=== PATIENT | female | born 1955 | race Caucasian/White ===

== ENCOUNTER → 2024-06-04 | Outpatient (CLI) | payer OTHER, SELFPAY ==
[2024-06-04 10:02] LABS: Anion Gap 5 (7-16); BUN/Creatinine Ratio 13 Ratio (12-20); Blood Urea Nitrogen 16 mg/dL (9-23); Calcium 9.4 mg/dL (8.3-10.6); Carbon Dioxide 28.9 mMol/L (20.0-31.0); Cardiac Risk Estimate 3.7 RATIO (3.7-5.6); Chloride 107 mMol/L (98-107); Cholesterol 185 mg/dL (132-200); Creatinine (Component) 1.2 mg/dL (0.6-1.3); Free T4 (Free Thyroxine) 1.38 ng/dL (0.89-1.76); Glucose 83 mg/dL (74-106); HDL Cholesterol 50 mg/dL (40-60); LDL Cholesterol,Calculated 112 mg/dL (0-130); Osmolality,Calculated 281 (275-295); Potassium 4.1 mMol/L (3.4-5.1); Sodium 141 mMol/L (136-145); Thyroid Stimulating Hormone 3.34 uIU/mL (0.55-4.78); Triglycerides 113 mg/dL (30-150); eGFR 49 See Note
== END | disposition home or self-care (01) ==
LOC: COPL 08:12
PROVIDERS: PCP Family Medicine; Referring Provider Registered Nurse; Visit Provider Specialist
DX: E03.9 Hypothyroidism, unspecified (principal); E78.5 Hyperlipidemia, unspecified; R07.9 Chest pain, unspecified
CPT/HCPCS: 36415; 80048; 80061; 84439; 84443

== ENCOUNTER → 2024-06-07 | Outpatient (BNVA) | payer OTHER, SELFPAY | END | disposition home or self-care (01) | PROVIDERS: PCP Registered Nurse; Referring Provider Registered Nurse; Visit Provider Urology | DX: N39.0 Urinary tract infection, site not specified (principal); N18.2 Chronic kidney disease, stage 2 (mild); F17.210 Nicotine dependence, cigarettes, uncomplicated | CPT/HCPCS: 81003; 99212; G0463 ==

== ENCOUNTER → 2024-07-06 | Outpatient (CLI) | payer OTHER, SELFPAY ==
--- NOTE | 2024-07-06 12:20 | XR_ITS ---
Examination: Bone densitometry Date and time of exam:July 06, 2024 1224 hrs. Indications: Menopause age 44 smoking history levothyroxine 9 years Technique: Lumbar spine and hip total bone mineralization values of an calculated. Peak reference and age match control results have been displayed. Findings: Lumbar spine total bone mineralization is0.918 gm/cm2. This is 1.2 standard deviations below peak reference. This is 1.0 standard deviations above age-matched controls. Hip total bone mineralization is 0.773 gm/cm2 This is 1.6 standard deviations below peak reference. This is 0.1 standard deviations above age-matched controls Impression: There is osteopenia based on lumbar spine measurements. There is osteoporosis based on hip measurements
== END | disposition home or self-care (01) ==
LOC: CDIM 11:58
PROVIDERS: Referring Provider Registered Nurse; Visit Provider Registered Nurse
DX: M85.88 Other specified disorders of bone density and structure, other site (principal); M81.0 Age-related osteoporosis without current pathological fracture
CPT/HCPCS: 77080

== ENCOUNTER → 2024-07-11 | Outpatient (CLI) | payer OTHER, SELFPAY ==
[2024-07-11 11:36] LABS: Basophils # (Auto) 0.1 Thou/mm3 (0.0-0.2); Basophils % (Auto) 1 % (0-2.5); Eosinophils # (Auto) 0.2 Thou/mm3 (0.0-0.5); Eosinophils % (Auto) 3 % (0-10); Hematocrit 43.4 % (36.0-46.0); Hemoglobin 14.4 g/dL (12.0-16.0); Immature Granulocytes % (Auto) 0 % (0-0); Immature Granulocytes Auto 0.02 Thou/mm3 (0.00-0.00); Lymphocytes # (Auto) 1.5 Thou/mm3 (1.0-4.8); Lymphocytes % (Auto) 22 % (10-50); Mean Corpuscular HGB Conc 33.2 g/dl (31.0-37.0); Mean Corpuscular Volume 96 fL (80-100); Monocytes # (Auto) 0.5 Thou/mm3 (0.0-0.8); Monocytes % (Auto) 7 % (0-12); Neutrophils # (Auto) 4.7 Thou/mm3 (1.8-7.7); Neutrophils % (Auto) 68 % (37-80); Nucleated Red Blood Cell % 0 /100 WBC (0); Platelet Count 212 Thou/mm3 (140-440); RDW Standard Deviation 46.4 fL (36.4-46.3)
[2024-07-11 11:57] LABS: Parathyroid Hormone Intact 70.1 pg/ml (18.5-88.0)
[2024-07-11 12:08] LABS: Albumin, Serum 4.2 gm/dL (3.4-4.8); Anion Gap 7 (7-16); BUN/Creatinine Ratio 12 Ratio (12-20); Blood Urea Nitrogen 13 mg/dL (9-23); Calcium 8.6 mg/dL (8.3-10.6); Calcium (Corrected) 8.6 mg/dL (8.5-10.1); Carbon Dioxide 25.8 mMol/L (20.0-31.0); Chloride 112 mMol/L (98-107); Creatinine (Component) 1.1 mg/dL (0.6-1.3); Glucose 71 mg/dL (74-106); Osmolality,Calculated 286 (275-295); Phosphorous 3.3 mg/dL (2.4-5.1); Sodium 145 mMol/L (136-145); eGFR 54 See Note
== END | disposition home or self-care (01) ==
LOC: COPL 10:15
PROVIDERS: PCP Registered Nurse; Referring Provider Internal Medicine; Visit Provider Internal Medicine
DX: N17.9 Acute kidney failure, unspecified (principal); I10 Essential (primary) hypertension
CPT/HCPCS: 36415; 80069; 81001; 82043; 82570; 83970; 85025

== ENCOUNTER → 2024-07-12 | Outpatient (CLI) | payer OTHER, SELFPAY ==
[2024-07-12 12:31] LABS: Creatinine,Random Urine 56 mg/dL (30-125)
== END | disposition home or self-care (01) ==
LOC: COPL 09:50
PROVIDERS: Referring Provider Family Medicine; Visit Provider Internal Medicine
DX: N17.9 Acute kidney failure, unspecified (principal); I10 Essential (primary) hypertension
CPT/HCPCS: 82570

== ENCOUNTER → 2024-07-24 | Outpatient (CLI) | payer OTHER, SELFPAY ==
--- NOTE | 2024-07-24 11:45 | XR_ITS ---
Examination: Retroperitoneal ultrasound, complete Technique: Multiple high resolution grayscale images of the retroperitoneum obtained, including kidneys and bladder. Exam date and time:July 24, 2024 1152 hours INDICATIONS: Recurrent urinary tract infections several years with renal insufficiency on laboratory examination. July 11, 2024 FINDINGS: Right kidney 9.5 cm cortex 1.5 cm Left kidney 9.0 cm cortex 1.1 cm Mild left hydronephrosis Mild bilateral renal parenchymal scar formation No bladder mass, bladder prevoid volume 498 cc IMPRESSION: Bilateral renal cortical thinning, small kidneys bilaterally Mild left hydronephrosis
== END | disposition home or self-care (01) ==
PROVIDERS: PCP Registered Nurse; Referring Provider Internal Medicine; Visit Provider Internal Medicine
DX: N28.89 Other specified disorders of kidney and ureter (principal); N13.30 Unspecified hydronephrosis
CPT/HCPCS: 76770

== ENCOUNTER → 2024-10-02 | Outpatient (CLI) | payer OTHER, SELFPAY ==
[2024-10-02 09:26] LABS: Collection Type, Urine Clean Catch
[2024-10-02 10:06] LABS: Albumin, Serum 4.4 gm/dL (3.4-4.8); Anion Gap 7 (7-16); BUN/Creatinine Ratio 11 Ratio (12-20); Blood Urea Nitrogen 13 mg/dL (9-23); Calcium 8.7 mg/dL (8.3-10.6); Calcium (Corrected) 8.7 mg/dL (8.5-10.1); Carbon Dioxide 27.6 mMol/L (20.0-31.0); Chloride 108 mMol/L (98-107); Creatinine (Component) 1.2 mg/dL (0.6-1.3); Glucose 88 mg/dL (74-106); Osmolality,Calculated 284 (275-295); Phosphorous 3.2 mg/dL (2.4-5.1); Potassium 4.2 mMol/L (3.4-5.1); Sodium 143 mMol/L (136-145); eGFR 49 See Note
[2024-10-02 11:46] LABS: Bilirubin,Urine Negative (Negative); Blood,Urine 1+ (Negative); Clarity,Urine Clear (Clear/Hazy); Color,Urine Lt-Yellow (Lt Yel-Yel); Glucose, Urine Negative (Negative); Ketones,Urine Negative (Negative); Leukocyte Esterase,Urine Negative (Negative); Nitrite,Urine Negative (Negative); PH,Urine 6.0 (5.0-7.0); Protein,Urine Negative (Neg - Trace); RBC,Urine 2 /hpf (0-3); Specific Gravity,Urine 1.007 (1.001-1.035); Squamous Epithelial Cell,Urine < 1 /hpf (0-5); Urobilinogen,Urine Negative mg/dL (0.0-1.0); WBC,Urine < 1 /hpf (0-5)
== END | disposition home or self-care (01) ==
LOC: COPL 08:13
PROVIDERS: PCP Internal Medicine; Referring Provider Internal Medicine; Visit Provider Internal Medicine
DX: N17.9 Acute kidney failure, unspecified (principal)
CPT/HCPCS: 36415; 80069; 81001

== ENCOUNTER → 2024-10-17 | Outpatient (CLI) | payer OTHER, SELFPAY ==
--- NOTE | 2024-10-17 10:35 | XR_ITS ---
Examination: PA lateral chest 2 views TECHNIQUE: Upright PA lateral chest 2 views Date and time: October 17, 2024 1042 hours Comparison January 16, 2023 INDICATIONS: Chest pain shortness of breath beginning one month ago. FINDINGS: Normal heart size Mild hyperexpansion. No pneumonia or pulmonary edema Prominent osteopenia IMPRESSION: Mild hyperexpansion No pneumonia or pulmonary edema
--- NOTE | 2024-10-17 10:35 | XR_ITS ---
Examination: Shoulder,right, 3 views Technique: Shoulder AP internal rotation, AP external rotation, Y view shoulder, 3 views Exam date and time :October 17, 2024 1039 hours INDICATIONS: Right shoulder pain beginning several years ago. FINDINGS: Severe osteopenia. Mild to moderate narrowing glenohumeral joint No shoulder fracture or dislocation IMPRESSION: Mild to moderate narrowing glenohumeral joint
[2024-10-17 10:56] LABS: Coccid Serology, CF (UCD)* See Sep Rpt
[2024-10-17 11:38] LABS: Basophils # (Auto) 0.1 Thou/mm3 (0.0-0.2); Basophils % (Auto) 1 % (0-2.5); Eosinophils # (Auto) 0.3 Thou/mm3 (0.0-0.5); Eosinophils % (Auto) 4 % (0-10); Hematocrit 46.2 % (36.0-46.0); Hemoglobin 15.6 g/dL (12.0-16.0); Immature Granulocytes Auto 0.01 Thou/mm3 (0.00-0.00); Lymphocytes # (Auto) 1.9 Thou/mm3 (1.0-4.8); Lymphocytes % (Auto) 31 % (10-50); Mean Corpuscular HGB Conc 33.8 g/dl (31.0-37.0); Mean Corpuscular Hemoglobin 32.4 pg (25.0-35.0); Mean Corpuscular Volume 96 fL (80-100); Monocytes # (Auto) 0.5 Thou/mm3 (0.0-0.8); Monocytes % (Auto) 8 % (0-12); Neutrophils # (Auto) 3.5 Thou/mm3 (1.8-7.7); Neutrophils % (Auto) 56 % (37-80); Nucleated Red Blood Cell # 0.00 Thou/mm3 (0.00-0.00); Nucleated Red Blood Cell % 0 /100 WBC (0); Platelet Count 255 Thou/mm3 (140-440); RDW Standard Deviation 46.6 fL (36.4-46.3); Red Blood Count 4.81 Miln/mm3 (4.00-5.20); White Blood Count 6.3 Thou/mm3 (3.6-11.0)
[2024-10-17 12:04] LABS: Alanine Aminotransferase 10 U/L (10-49); Albumin, Serum 4.7 gm/dL (3.4-4.8); Albumin/Globulin Ratio 1.9 (1.2-2.2); Alkaline Phosphatase 81 U/L (46-116); Anion Gap 9 (7-16); Aspartate Amino Transferase 12 U/L (0-34); BUN/Creatinine Ratio 12 Ratio (12-20); Bilirubin,Total 0.4 mg/dL (0.3-1.2); Blood Urea Nitrogen 14 mg/dL (9-23); Calcium 9.1 mg/dL (8.3-10.6); Calcium (Corrected) 9.1 mg/dL (8.5-10.1); Carbon Dioxide 26.5 mMol/L (20.0-31.0); Chloride 108 mMol/L (98-107); Creatinine (Component) 1.2 mg/dL (0.6-1.3); Globulin 2.5 gm/dL (2.3-3.5); Glucose 94 mg/dL (74-106); Magnesium 1.8 mg/dL (1.6-2.6); Osmolality,Calculated 285 (275-295); Potassium 4.3 mMol/L (3.4-5.1); Sodium 143 mMol/L (136-145); Total Protein 7.2 gm/dL (5.7-8.2); Troponin I < 0.002 ng/mL (0.0-0.045); eGFR 49 See Note
[2024-10-17 12:18] LABS: Vitamin B12 1270 pg/mL (211-911); Vitamin D 25 Hydroxy Total 48.0 ng/mL (7.3-40.2)
== END | disposition home or self-care (01) ==
PROVIDERS: PCP Registered Nurse; Referring Provider Registered Nurse; Visit Provider Radiology Diagnostic Radiology
DX: J98.4 Other disorders of lung (principal); M25.811 Other specified joint disorders, right shoulder; J44.9 Chronic obstructive pulmonary disease, unspecified; R07.9 Chest pain, unspecified; R79.89 Other specified abnormal findings of blood chemistry
CPT/HCPCS: 36415; 71046; 73030; 80053; 82306; 82607; 83735; 84484; 85025; 86171

== ENCOUNTER 2024-11-19 17:59 | Emergency (ER) | payer OTHER, SELFPAY ==
[2024-11-19 18:00] VITALS: BMI 25.6
[2024-11-19 19:16] VITALS: BP 139/75; PULSE 88; RESP 17; TEMP 37.5; O2SAT 91
--- NOTE | 2024-11-19 19:22 | XR_ITS ---
Examination: CT brain head without contrast. 2-D sagittal coronal reconstructions Date and time of exam:November 19, 2024, 1942 hours INDICATIONS: Headache dizziness weakness beginning this morning CTDI: vol (mGy):46.6 DLP: (mGycm):943 Technique: Multiple CT axial sections of the brain have been obtained, 5 mm slice thickness. Contrast has not been administered. 2-D sagittal, coronal reconstructions have been obtained Low dose protocols were performed. One or more of the following dose reduction techniques were used; automated exposure control, adjustment of the mA and/or KV according to patient size, use of iterative reconstruction technique. Findings: No significant ventricular enlargement. Intra-axial or extra-axial hemorrhage density is not seen. No mass effect or midline shift Basal cisterns are not remarkable. Fourth ventricle is midline. Cranial vault intact. Impression: Negative for acute hemorrhage, mass effect or midline shift As clinically warranted, if symptoms persist, consider brain MRI follow-up, stroke protocol
--- NOTE | 2024-11-19 19:22 | PD.EDRME ---
Rapid Medical Screening Exam RME Arrival date/time: 11/19/24 17:59 This is a case of 69-year-old female who came into the emergency room due to headache and generalized body ache patient has no fever and chills patient also states that she is having painful urination urgency and frequent urination no blood in urine Chief Complaint: Headache Time Seen by Provider: 11/19/24 18:25 Vital signs: Vital Signs Temperature 99.5 F 11/19/24 19:16 Pulse Rate 88 11/19/24 19:16 Respiratory Rate 17 11/19/24 19:16 Blood Pressure 139/75 H 11/19/24 19:16 Pulse Oximetry (%) 91 L 11/19/24 19:16 Oxygen Delivery Method Room Air 11/19/24 19:16
[2024-11-19 20:27] LABS: Basophils # (Auto) 0.0 Thou/mm3 (0.0-0.2); Basophils % (Auto) 0 % (0-2.5); Eosinophils # (Auto) 0.1 Thou/mm3 (0.0-0.5); Eosinophils % (Auto) 1 % (0-10); Hematocrit 42.4 % (36.0-46.0); Hemoglobin 14.2 g/dL (12.0-16.0); Immature Granulocytes Auto 0.09 Thou/mm3 (0.00-0.00); Lymphocytes # (Auto) 0.9 Thou/mm3 (1.0-4.8); Lymphocytes % (Auto) 5 % (10-50); Mean Corpuscular HGB Conc 33.5 g/dl (31.0-37.0); Mean Corpuscular Hemoglobin 32.1 pg (25.0-35.0); Mean Corpuscular Volume 96 fL (80-100); Monocytes # (Auto) 0.7 Thou/mm3 (0.0-0.8); Monocytes % (Auto) 4 % (0-12); Neutrophils # (Auto) 14.3 Thou/mm3 (1.8-7.7); Neutrophils % (Auto) 89 % (37-80); Nucleated Red Blood Cell # 0.00 Thou/mm3 (0.00-0.00); Nucleated Red Blood Cell % 0 /100 WBC (0); Platelet Count 197 Thou/mm3 (140-440); RDW Standard Deviation 47.8 fL (36.4-46.3); Red Blood Count 4.42 Miln/mm3 (4.00-5.20); White Blood Count 16.1 Thou/mm3 (3.6-11.0)
[2024-11-19 20:35] LABS: Collection Type, Urine Voided
[2024-11-19 20:45] LABS: Alanine Aminotransferase 11 U/L (10-49); Albumin, Serum 4.6 gm/dL (3.4-4.8); Albumin/Globulin Ratio 2.1 (1.2-2.2); Alkaline Phosphatase 79 U/L (46-116); Anion Gap 8 (7-16); Aspartate Amino Transferase 15 U/L (0-34); BUN/Creatinine Ratio 10 Ratio (12-20); Bilirubin,Total 0.5 mg/dL (0.3-1.2); Blood Urea Nitrogen 11 mg/dL (9-23); Calcium 9.0 mg/dL (8.3-10.6); Calcium (Corrected) 9.0 mg/dL (8.5-10.1); Carbon Dioxide 26.8 mMol/L (20.0-31.0); Chloride 105 mMol/L (98-107); Creatinine (Component) 1.1 mg/dL (0.6-1.3); Estimated Creatinine Clearance 46.7 mL/min (>60); Globulin 2.2 gm/dL (2.3-3.5); Glucose 103 mg/dL (74-106); Osmolality,Calculated 278 (275-295); Potassium 3.8 mMol/L (3.4-5.1); Sodium 140 mMol/L (136-145); Total Protein 6.8 gm/dL (5.7-8.2); eGFR 54 See Note
[2024-11-19 20:50] LABS: Bacteria,Urine Rare; Bilirubin,Urine Negative (Negative); Blood,Urine 1+ (Negative); Clarity,Urine Turbid (Clear/Hazy); Color,Urine Lt-Yellow (Lt Yel-Yel); Glucose, Urine Negative (Negative); Ketones,Urine Negative (Negative); Leukocyte Esterase,Urine Positive (Negative); Nitrite,Urine Negative (Negative); PH,Urine 6.0 (5.0-7.0); Protein,Urine Negative (Neg - Trace); RBC,Urine 6 /hpf (0-3); Specific Gravity,Urine 1.009 (1.001-1.035); Squamous Epithelial Cell,Urine 8 /hpf (0-5); Urobilinogen,Urine Negative mg/dL (0.0-1.0); WBC,Urine 101 /hpf (0-5)
[2024-11-20] VITALS: BP 113/63; PULSE 82; RESP 18; TEMP 36.7; O2SAT 96
--- NOTE | 2024-11-20 05:49 | PD.EDHA ---
ED Headache RME/HPI General Chief Complaint: Headache Stated Complaint: HEADACHE, WEAK, DIZZY, LEG PAIN Time Seen by Provider: 11/19/24 18:25 Arrival date/time: 11/19/24 17:59 RME / HPI RME / HPI Narrative: 11/19/24 17:59 This is a case of 69-year-old female who came into the emergency room due to headache and generalized body ache patient has no fever and chills patient also states that she is having painful urination urgency and frequent urination no blood in urine Dr. Summers?s Main ED Evaluation: 69yo female here with onset nausea, left temporal headache, generalized fatigue, disequilibrium x 24 hr. No vertigo. Also reports sudden frequency, urgency, and dysuria. PMH HTN, recurrent UTIs, COPD. PSH hysterectomy and thyroid tumor excision. Social Hx: prior smoker, no alcoholism or illicit drug abuse. Related Data Home Medications ?Medication ?Instructions ?Recorded ?Confirmed bupropion HCl 100 mg tablet 100 mg PO BID 06/07/24 06/07/24 buspirone 5 mg tablet 5 mg PO BID 06/07/24 06/07/24 estradiol 0.01% (0.1 mg/gram) 2 g vaginal DIRECTED 06/07/24 06/07/24 vaginal cream (Estrace) ezetimibe 10 mg tablet 10 mg PO QDAY 06/07/24 06/07/24 fluticasone fur. 100 mcg-umeclid 1 inh inhalation QDAY PRN 06/07/24 06/07/24 62.5 mcg-vilant 25 mcg inhalat.powder (Trelegy Ellipta) levothyroxine 75 mcg capsule 75 mcg PO QDAY 06/07/24 06/07/24 losartan 50 mg-hydrochlorothiazide 1 tab PO QDAY 06/07/24 06/07/24 12.5 mg tablet nitrofurantoin 100 mg PO QDAY 06/07/24 06/07/24 monohydrate/macrocrystals 100 mg capsule (Macrobid) pravastatin 40 mg tablet 40 mg PO QDAY 06/07/24 06/07/24 Previous Rx's ?Medication ?Instructions ?Recorded albuterol sulfate 90 mcg/actuation 2 inh inhalation Q4H PRN shortness 01/16/23 aerosol inhaler of breath or wheezing #8.5 grams cefdinir 300 mg capsule 300 mg PO BID #7 caps 11/20/24 Allergies Allergy/AdvReac Type Severity Reaction Status Date / Time No Known Allergies Allergy Verified 11/19/24 18:02 Review of Systems Review of Systems Systems Reviewed: All systems reviewed, normal except as documented Past Medical History Social History SMOKING STATUS: Current every day smoker ED Exam Narrative Physical exam: GENERAL APPEARANCE: alert and oriented x 4, well-developed, well-nourished, nontoxic, no acute distress VITALS: All vitals were reviewed and the pulse ox is 96% on room air, which is normal according to my interpretation. HEENT: Normocephalic, atraumatic; pupils equal, round, reactive to light; EOMI; mucous membranes pink, moist; oropharynx clear NECK: Supple LUNGS: CTABL; no wheezes, no rales, no rhonchi HEART: Regular rate, regular rhythm; normal S1, S2; no murmurs ABDOMEN: non distended; normal BS; soft, no tenderness, no guarding, no rebound; no masses, no organomegaly, no hernia BACK: no CVA tenderness EXTREMITIES: atraumatic; no edema NEUROLOGIC: awake; alert and oriented x4; GCS 15; cranial nerves II-XII grossly intact; no focal sensory or motor deficits; normal F-N, gait is slightly wide-based PSYCHIATRIC: appropriate mood and affect SKIN: warm, dry, normal color; no rashes Course Quality Measures none Orders Category Date Time Status Bedside COVID-19 Antigen Test NOW Care 11/19/24 19:22 Active Bedside Influenza A&B Antigen Test NOW Care 11/19/24 19:[address] head/brain wo con Stat Exams 11/19/24 19:22 Completed CBC Stat Lab 11/19/24 20:14 Completed CMP [Comprehensive Metabolic Panel] Stat Lab 11/19/24 20:14 Completed Urinalysis Stat Lab 11/19/24 20:28 Completed Sodium Chloride 0.9% 1000 ml [Ns] 1,000 ml Med 11/20/24 06:05 Active IV 999 mls/hr cefTRIAXone/D5w 1gm IV premix [Rocephin/D5w 1gm IV Med 11/20/24 06:02 Discontinued premix] 1 gm in 50 ml IV X1 Vital Signs Vital signs: Vital Signs Temperature 99.5 F 11/19/24 19:16 Pulse Rate 88 11/19/24 19:16 Respiratory Rate 17 11/19/24 19:16 Blood Pressure 139/75 H 11/19/24 19:16 Pulse Oximetry (%) 91 L 11/19/24 19:16 Oxygen Delivery Method Room Air 11/19/24 19:16 Headache MDM Narrative MDM Narrative:: Scribe Attestation: 11/20/24 - Kristin, Bela Rizvi am scribing for and in the presence of Dr. Summers. 69yo female here with onset nausea, left temporal headache, generalized fatigue, disequilibrium x 24 hr. No vertigo. Also reports sudden frequency, urgency, and dysuria. Please see PE findings. Lab markers demonstrate elevated WBC 16k, no thrombocytopenia, noted left shift. Chemistries demonstrate evidence of normal renal function with GFR 54. UA demonstrates positive leukocyte esterase, evidence of pyuria and bacteria. CT head is unremarkable. Patient treated with IV antibiotics and fluid hydration. Will be discharged home on outpatient antibiotics with precaution instructions issued. Patient data External records reviewed:: [facility] previous records (Per chart review, patient has no relevant previous ED visits.) Clinical information provided by:: patient Social determinants that could affect healthcare access:: none Patient has the following chronic illnesses:: HTN, COPD How is presenting disease/condition affected by chronic disease/condition?: uneffected by Evaluation data The following diagnostics were reviewed and interpreted by me:: lab results and radiology exam(s) Lab and/or radiology exams considered but not ordered:: none Interpretation Summary: [facility] Report Signed Patient: BRENDAN SLAUGHTER [facility] Record#: [id number] Birthdate: 1955 Age/Sex: 69 / F Location: [facility] Attending Dr: Ordering Physician: Jani Pinto Date of Service: 11/19/24 Procedure(s): CT head/brain wo con Accession Number(s): [id number] cc: Christiano Roberts MD; Selvin Oneill MD; Jani Pinto~ Examination: CT brain head without contrast. 2-D sagittal coronal reconstructions Date and time of exam:November 19, 2024, 1942 hours INDICATIONS: Headache dizziness weakness beginning this morning CTDI: vol (mGy):46.6 DLP: (mGycm):943 Technique: Multiple CT axial sections of the brain have been obtained, 5 mm slice thickness. Contrast has not been administered. 2-D sagittal, coronal reconstructions have been obtained Low dose protocols were performed. One or more of the following dose reduction techniques were used; automated exposure control, adjustment of the mA and/or KV according to patient size, use of iterative reconstruction technique. Findings: No significant ventricular enlargement. Intra-axial or extra-axial hemorrhage density is not seen. No mass effect or midline shift Basal cisterns are not remarkable. Fourth ventricle is midline. Cranial vault intact. Impression: Negative for acute hemorrhage, mass effect or midline shift As clinically warranted, if symptoms persist, consider brain MRI follow-up, stroke protocol Dictated By: Christiano Roberts MD Signed By: <Electronically signed by Christiano Roberts MD in [place]> 11/19/24 2110 Medications / Prescriptions Medications or Prescriptions considered but not ordered:: none Medication administrations:: Medication Administration History Sodium Chloride (Ns) 1,000 mls @ 999 mls/hr IV .Q1H1M ONE Stop: 11/20/24 07:05 Last Admin: 11/20/24 06:42 Dose: 999 mls/hr Documented By: TAMAR Discontinued Medications Ceftriaxone Sodium/Dextrose (Rocephin/D5w 1gm Iv Premix) 1 gm in 50 mls @ 100 mls/hr IV X1 ONE Stop: 11/20/24 06:31 Last Admin: 11/20/24 06:42 Dose: 100 mls/hr Documented By: TAMAR see above, if any Consultations Consultation(s) initiated? (list below): No Diagnosis Differential diagnosis headache: migraine, tension headache, headache and other (UTI, dehydration, electrolyte abnormality) Most likely diagnosis given after review of the tests above:: see clinical impression below Admission Indicated Admission indicated?: not indicated Admission Request Was there a request for admission?: No Disposition Plan Disposition Plan: Discharge Discharge Attestation Discharge Attestation: The patient and all family members were given an opportunity to ask questions and understood the discharge instructions. Discharge instructions specifically effects, indications for sooner follow up or return to the emergency department, and the expected course of current diagnosis. Patient condition: Stable Discharge Plan Plan Patient Disposition: HOME (Self Care) Discharge Disposition comment: Stable Prescriptions/Referrals Prescriptions/Med Rec: New cefdinir 300 mg capsule 300 mg PO BID Qty: 7 0RF No Action bupropion HCl 100 mg tablet 100 mg PO BID pravastatin 40 mg tablet 40 mg PO QDAY losartan-hydrochlorothiazide 50-12.5 mg tablet 1 tab PO QDAY buspirone 5 mg tablet 5 mg PO BID Trelegy Ellipta 100-62.5-25 mcg blister with device 1 inh inhalation QDAY PRN levothyroxine 75 mcg capsule 75 mcg PO QDAY ezetimibe 10 mg tablet 10 mg PO QDAY nitrofurantoin monohyd/m-cryst [Macrobid] 100 mg capsule 100 mg PO QDAY Rx Instructions: must administer with a meal/food estradiol [Estrace] 0.01 % (0.1 mg/gram) cream 2 g vaginal DIRECTED Patient Comments: twice a week albuterol sulfate 90 mcg/actuation HFA aerosol inhaler 2 inh inhalation Q4H PRN (Reason: shortness of breath or wheezing) Qty: 8.5 0RF Referrals: Selvin Oneill MD [Primary Care Provider] - In 1 week Problem List Clinical Impression: Acute UTI (urinary tract infection), Disequilibrium Patient/Caregiver Discharge Instructions Discharge Activity: walk with walker only Education Materials: Dizziness Fainting Poss Causes, ED CYSTITIS Female Adult Additional Instructions: Force fluids/medication as directed/utilize walker when ambulating. Follow-up with primary care doctor in 5 to 7 days. Print Language: Estonian Stand Alone Forms: Mattie Award Info., Patient Portal Info Letter
[2024-11-20] MEDS: SODIUM CHLORIDE 0.9% 1000 ML 1,000 ML 999 ML IV (06:42)
[2024-11-20] MEDS: cefTRIAXone/D5w 1gm IV premix 1 GM/50 ML BAG IV (06:42)
[2024-11-20 08:20] VITALS: BP 115/62; PULSE 61; RESP 18; TEMP 36.4; O2SAT 99
== END 2024-11-20 08:00 | disposition home or self-care (01) ==
PROVIDERS: Nurse Practitioner Family; Emergency Provider Emergency Medicine; PCP Family Medicine
DX: N39.0 Urinary tract infection, site not specified (principal); E87.8 Other disorders of electrolyte and fluid balance, not elsewhere classified; R42 Dizziness and giddiness; R51.9 Headache, unspecified; R53.1 Weakness
CPT/HCPCS: 36415; 70450; 80053; 81001; 85025; 87400; 87811; 96361; 96365; 99284; J0696; J7030

== ENCOUNTER → 2024-11-30 | Outpatient (CLI) | payer OTHER, SELFPAY | END | disposition home or self-care (01) | LOC: SLDO 16:14 | PROVIDERS: PCP Registered Nurse; Referring Provider Registered Nurse; Visit Provider Registered Nurse | DX: N39.0 Urinary tract infection, site not specified (principal) | CPT/HCPCS: 87086 ==

== ENCOUNTER → 2024-12-10 | Outpatient (BNVA) | payer OTHER, SELFPAY | END | disposition home or self-care (01) | PROVIDERS: PCP Registered Nurse; Referring Provider Registered Nurse; Visit Provider Urology | DX: G89.4 Chronic pain syndrome (principal); R10.2 Pelvic and perineal pain; N39.0 Urinary tract infection, site not specified; I12.9 Hypertensive chronic kidney disease with stage 1 through stage 4 chronic kidney disease, or unspecified chronic kidney disease; N18.9 Chronic kidney disease, unspecified; F17.210 Nicotine dependence, cigarettes, uncomplicated | CPT/HCPCS: 81003; 99212; G0463 ==

== ENCOUNTER → 2025-02-04 | Outpatient (BNVA) | payer OTHER, SELFPAY | END | disposition home or self-care (01) | PROVIDERS: PCP Registered Nurse; Referring Provider Registered Nurse; Visit Provider Urology | DX: N35.92 Unspecified urethral stricture, female (principal); Z87.440 Personal history of urinary (tract) infections | CPT/HCPCS: 52281; 81003; 96372; A4217; A4649; C1894; J1580; A9270 ==